=== PATIENT | male | born 1965 | race Caucasian/White ===

== ENCOUNTER 2019-03-16 07:04 | Emergency (ER) | payer MEDICAID ==
[~2019-03-16] VITALS: Ht 182.9 cm; Wt 99.8 kg
[~2019-03-16 07:04] MED LIST: LISI10TA11 PO; METF1000 PO
[2019-03-16 07:11] VITALS: BP 127/84
--- NOTE | 2019-03-16 07:17 | NUR ---
PT TO BED 8 WITH STEADY GAIT
--- NOTE | 2019-03-16 07:35 | NUR ---
53 Y/M PRESENTS TO ED C/O MID BACK PAIN 11/26. PT DENIES INJURY, REPORTED TO PCP YESTERDAY AND DX "RIB INFLAMMATION WITH AIR". PT WAS GIVEN PAIN AND STREROID INJECTION WELL RX FOR PO STEROID MEDICATION. PT REPORTS PAIN IS SHARP, NON RADIATING, WORSE WHEN TWISTING/ BENDING. HX- DM, HTN NKDA RX- INSULIN, LISINOPRIL, METFORMIN
[2019-03-16] MEDS ORDERED: KETOROLAC 60 MG/2 ML VIAL IM ONE (08:10)
--- NOTE | 2019-03-16 08:11 | NUR ---
data communications technician at bedside.
--- NOTE | 2019-03-16 08:20 | NUR ---
XR AT BEDSIDE.
[2019-03-16 10:20] VITALS: BP 125/77
--- NOTE | 2019-03-16 10:23 | NUR ---
Patient discharged with v/s stable. Written and verbal after care instructions given and explained. Patient alert, oriented and verbalized understanding of instructions. Ambulatory with steady gait. All questions addressed prior to discharge. ID band removed. Patient advised to follow up with PMD. Rx of ibu, roxaxin given. Patient educated on indication of medication including possible reaction and side effects. Opportunity to ask questions provided and answered.
== END 2019-03-16 10:23 | disposition home or self-care (01) ==
LOC: MED 07:04
DX: S39.012A Strain of muscle, fascia and tendon of lower back, initial encounter (principal); R30.0 Dysuria; R06.02 Shortness of breath; I10 Essential (primary) hypertension; E11.9 Type 2 diabetes mellitus without complications; Z79.899 Other long term (current) drug therapy; Z79.84 Long term (current) use of oral hypoglycemic drugs; X58.XXXA Exposure to other specified factors, initial encounter; Y93.89 Activity, other specified; Y92.89 Other specified places as the place of occurrence of the external cause; Y99.8 Other external cause status
CPT/HCPCS: 71045; 96372; 99283; J1885; Q0092